=== PATIENT | female | born 1995 | race Caucasian/White ===

== ENCOUNTER 2019-05-04 18:10 | Emergency (ER) | payer MEDICAID ==
[~2019-05-04] VITALS: Ht 144.8 cm; Wt 48.0 kg
[2019-05-05 01:25] LABS: CLARITY URINE CLOUDY (CLEAR); COLOR URINE YELLOW (YELLOW); KETONES URINE 1+ (NEGATIVE); LEUKOCYTE ESTERASE URINE 2+ (NEGATIVE); NITRITE URINE NEGATIVE (NEGATIVE); OCCULT BLOOD URINE NEGATIVE (NEGATIVE); PH URINE 6.5 (4.5-8.0); PROTEIN URINE NEGATIVE (NEGATIVE)
[2019-05-05 04:41] VITALS: BP 110/72
[2019-05-05] MEDS ORDERED: CEPHALEXIN 250MG CAPSULE PO SCH (04:45)
== END 2019-05-05 05:02 | disposition home or self-care (01) ==
LOC: ER 22:36
DX: N39.0 Urinary tract infection, site not specified (principal); R53.1 Weakness; J45.909 Unspecified asthma, uncomplicated
CPT/HCPCS: 81003; 81025; 93005; 99284